=== PATIENT | female | born 1960 | race Caucasian/White ===

== ENCOUNTER 2018-03-08 12:41 | Emergency (ER) | payer OTHER ==
[2018-03-08] MEDS ORDERED: DIAZEPAM 5 MG/ML 1 ML SYR IVP ONE (14:20)
[2018-03-08] MEDS ORDERED: MECLIZINE HCL 25 MG TAB PO ONE (14:20)
--- NOTE | 2018-03-08 14:24 | EDPHY ---
General Time Seen by Provider: 03/08/18 14:20 Narrative: CHIEF COMPLAINT: Dizzy, vomiting HISTORY OF PRESENT ILLNESS: Patient presents by private vehicle with complaints of dizziness and vomiting. She states that she was fine this morning when she awoke. She was drinking coffee with her and then leaned forward when she had a very sudden onset of feeling dizzy. She describes as a spinning sensation of the room. It was worse when she moved her head. Improved at rest. She vomited once. She continued to feel nauseated. When she laid down and close her eyes it was significantly better. She has no headache or chest pain. No shortness of breath. No unilateral complaints. Symptoms have improved if she holds still. No previous episode of this. She has no recent fever or illness. No ear pain. No ringing of the ears. No trauma. No previous incidence of this. No other associated complaints or modifying factors. REVIEW OF SYSTEMS: 10 systems were reviewed and negative with the exception of the elements mentioned in the history of present illness. PCP: Pending [facility] SPECIALISTS: None PAST MEDICAL HISTORY: Low back pain PAST SURGICAL HISTORY: No recent surgical history SOCIAL HISTORY: Daily smoker. Lives independently with her spouse. Works as a head cook. FAMILY HISTORY: Noncontributory EXAMINATION: Vitals: Triage VS reviewed General Appearance: Alert, no distress. Well appearing Head: normocephalic, atraumatic. No facial droop Eyes: Pupils equal and round, no conjunctival pallor or injection. EOM symmetric. Horizontal nystagmus, right greater than left. ENT, Mouth: Mucous membranes moist Neck: Normal inspection, supple, non-tender Respiratory: Lungs are clear to auscultation Cardiovascular: Regular rate and rhythm. No murmur Gastrointestinal: Abdomen is soft and nontender Back: non-tender, no bony abnormalities Neurological: GCS 15. A&O, nonfocal, light sensory symmetric in upper lower extremities. Strength is symmetric in upper lower extremities. No pronator drift. Normal [id number]. NIH stroke scale 0. Skin: Warm and dry, no rash Extremities: Nontender, no pedal edema Psychiatric: Mood and affect normal DIFFERENTIAL DIAGNOSES: Including but not limited to CVA, vertigo, vertebrobasilar syndrome, dehydration MDM: 2:20 p.m. Acute spinning sensation and reported dizziness with history examination consistent with vertigo. She has a negative stroke scale. She has horizontal but no vertical nystagmus. Her symptoms are positional left to right but not worse with extension or flexion of the neck. She has no chest pain or shortness of breath. She is awake and alert. She is in no acute distress. I have ordered symptomatic medications and IV fluid. I will re-evaluate shortly. 3:40 p.m. Laboratory studies are within normal limits. Patient re-evaluated. She reports that she is feeling significantly better after meclizine and Valium. She would like to go home. She has a normal neuro examination at this time and would like to go home. I do feel it is reasonable. We discussed follow up with [place] physician and with [facility] for definitive care. We discussed ED precautions for unilateral complaints, headache, chest pain, vomiting. She is comfortable this plan. Discharged home stable condition with her family. SUPERVISION: This patient was independently evaluated without direct involvement of or examination by the attending physician. CONSULTATION: None - History Smoking Status: Current every day smoker - Objective Vital Signs: Initial Vital Signs Temperature (C) 98.2 F 03/08/18 12:44 Heart Rate 63 03/08/18 12:44 Respiratory Rate 18 03/08/18 12:44 Blood Pressure 155/83 H 03/08/18 12:44 O2 Sat (%) 93 03/08/18 12:44 O2 Delivery Mode Room Air Allergies/Adverse Reactions: No Known Allergies Allergy (Unverified 03/08/18 12:43) Home Medications: Medication Instructions Recorded Diazepam [Valium 5 MG (*)] 5 mg PO TID PRN #15 tab 03/08/18 Meclizine HCl [Meclizine HCl 25 mg 25 mg PO BID PRN #10 tab 03/08/18 (RX,OTC)] Laboratory Results: Laboratory Results 03/08/18 14:40 03/08/18 14:40 Medications Given: Discontinued Medications Diazepam (Valium) 2 mg IVP EDNOW ONE Stop: 03/08/18 14:21 Last Admin: 03/08/18 14:37 Dose: 2 mg Meclizine HCl (Meclizine Hcl) 25 mg PO EDNOW ONE Stop: 03/08/18 14:21 Last Admin: 03/08/18 14:31 Dose: 25 mg Departure - Departure Disposition: Home, Routine, Self-Care Clinical Impression: Vertigo Condition: Good Instructions: Vertigo (ED) Additional Instructions: 1. Meclizine as prescribed as needed 2. Valium as prescribed as needed if the meclizine is not sufficient. 3. Contact [place] for primary care follow-up and ENT follow-up 4. ED precautions for unilateral complaints, intractable dizziness, intractable nausea vomiting, headache, chest pain, difficulty with speech or facial droop Referrals: [facility] ,. [Edm Groups for Call Sched] - As per Instructions Paco Martinez MD [Medical Doctor] - As per Instructions Physician,Emergency Dept, [Medical Doctor] - As per Instructions Prescriptions: Diazepam [Valium 5 MG (*)] 5 mg PO TID PRN #15 tab PRN Reason: Nausea/Vomiting, Use 2nd Meclizine HCl [Meclizine HCl 25 mg (RX,OTC)] 25 mg PO BID PRN #10 tab PRN Reason: Dizziness
--- NOTE | 2018-03-08 15:31 | CPEKG ---
Test Reason : OPEN Blood Pressure : / mmHG Vent. Rate : 059 BPM Atrial Rate : 060 BPM P-R Int : 201 ms QRS Dur : 105 ms QT Int : 443 ms P-R-T Axes : 073 079 065 degrees QTc Int : 439 ms Sinus rhythm Confirmed by Terry Momin ([id number]) on 03/08/2018 3:31:17 PM Referred By: Confirmed By:Terry Momin
[2018-03-08 16:14] VITALS: BP 147/78
== END 2018-03-08 16:14 | disposition home or self-care (01) ==
DX: R42 Dizziness and giddiness (principal); R11.10 Vomiting, unspecified
CPT/HCPCS: 96374; J3360